=== PATIENT | male | born 1940 | race Caucasian/White ===

== ENCOUNTER → 2017-10-01 09:56 | Outpatient (CLI) | payer MEDICARE, BC ==
[~2017-10-01] VITALS: Ht 172.7 cm; Wt 84.1 kg
--- NOTE | ~2017-10-01 | HEMODYNAMI ---
PATIENT:BLAKE TURNER MEDICAL RECORD: [id number] : 36 LOCATION:[facility] ADMISSION DATE: 10/01/17 Generatedon:10/01/201714:11 Patient name: BLAKE TURNER Patient #: [id number] SSN: : 1940 Date of study: 10/01/2017 Page: Of Hemodynamic Procedure Report Patient Data Patient Demographics Procedure consent was obtained First Name: BLAKE Gender: Male Last Name: YUE : 1940 Middle Initial: N Age: 76 year(s) Patient #: [id number] Race: Additional ID: [id number] Contact details Address: [address] [place] [address] State: [place] City: [place] Zip code: [address] Past Medical History History of disease Date Diagnosis Comments CAD Admission Admission Data Admission Date: 10/01/2017 Admission Time: 9:56 Height (in.): 69 BSA: 2 (m2) Height (cm.): 175.26 BMI: 27.32 (kg/m2) Weight (lbs.): 185 Weight (kg.): 83.91 Procedure Procedure Types Cath Procedure Diagnostic Procedure LHC LHC w/Coronaries w/Grafts Miscellaneous Procedures Moderate Sedation up to 15 minutes Procedure Description Procedure Date Procedure Date: 10/01/2017 Procedure Start Time: 13:45 Procedure End Time: 14:09 Procedure Staff Name Function Cal Medeiros MD Performing Physician Mary Macedo RT Monitor Latosha Quach RT Scrub Daisy Crowell RN Nurse Ryan Stratton RN Civil Engineering Manager Procedure Data Cath Procedure Fluoroscopy Diagnostic fluoroscopy Total fluoroscopy Time: 7.1 time: 7.1 min min Diagnostic fluoroscopy Total fluoroscopy dose: 795 dose: 795 mGy mGy Contrast Material Contrast Material Type Amount (ml) Isovue 300 130 Entry Location Entry Primary Successful Side Size Upsize Upsize Entry Closure Succes sful Closure Location (Fr) 1 (Fr) 2 (Fr) Remarks Device Remarks Femoral Right 5 Fr Exoseal artery Estimated blood loss: 10 ml Diagnostic catheters Device Type Used For End Catheter Placement MULTIPACK JL 4.0 5Fr Procedure catheter MULTIPACK 3DRC 5Fr catheter DIAGNOSTIC AR 2 MOD 5 Fr Procedure catheter ([id number]) DIAGNOSTIC IMT 5Fr Procedure Catheter ([id number]) MULTIPACK Pigtail 5 Fr Ventriculography catheter Procedure Complications No complications Procedure Medications Medication Administration Route Dosage 0.9% NaCl I.V. 100 ml/hr Oxygen NC 2 l/min Lidocaine 2% added to field 20 Heparin Flush Bag added to field 2 bags (1000units/500ml NS) Versed I.V. 1 mg Fentanyl I.V. 50 mcg Fentanyl I.V. 50 mcg Versed I.V. 1 mg Hemodynamics Rest BSA: 2 (m2) O2 Consumption: Estimated: 233 (ml/min) O2 Consumption indexed: Lynda mated:116.5 (ml/min/m) Heart Rate: 75 (bpm) Pressure Samples Time Site Value (mmHg) Purpose Heart Use Rate(bpm) 14:06 LV 150/14,31 Snapshot 79 14:06 LV 170/-1,23 Snapshot 87 14:07 AO 190/94(135) Pullback 77 14:07 LV 191/0,29 Pullback 77 Gradients Valve Time Site 1 Site 2 Mean SEP/DFP Peak To Heart Use (mmHg) (sec/min) Peak Rate (mmHg) (bpm) Aortic 14:07 LV AO 1 3 1 77 191/0,29 190/94(135) Calculations Valve P-P Mean Valve Index Valve Source Name Gradient Area Flow (cm2) Aortic 1 1 1 1 Snapshots Pre Cath Intra NCS Post Cath Vital Signs Time Heart Resp SPO2 etCO2 NIBP (mmHg) Rhythm Pain Sedation Rate (ipm) (%) (mmHg) Status Level (bpm) 13:32:11 70 15 96 0 135/92(122) NSR 0 (11) 10(A) , No pain 13:37:16 69 24 95 28.6 181/94(146) NSR 0 (11) 10(A) , No pain 13:41:40 68 18 98 32.4 176/96(154) NSR 0 (11) 10(A) , No pain 13:45:54 72 16 95 32.4 156/91(135) NSR 0 (11) 10(A) , No pain 13:50:06 75 14 94 38.5 140/78(122) NSR 0 (11) 9(A) , No pain 13:54:16 76 14 94 39.2 138/80(120) NSR 0 (11) 9(A) , No pain 13:58:30 77 16 95 40 132/82(116) NSR 0 (11) 9(A) , No pain 14:02:44 78 16 94 40 148/81(131) NSR 0 (11) 9(A) , No pain 14:07:00 76 16 96 38.5 152/89(124) NSR 0 (11) 10(A) , No pain Medications Time Medication Route Dose Verified Delivered Reason Notes Effe ctiveness by by 13:38:38 0.9% NaCl I.V. 100 Cal Daisy used for ml/hr Waldemar Crowell RN procedure 13:38:47 Oxygen NC 2 Cal Daisy Per l/min Waldemar Crowell RN physician 13:38:55 Lidocaine 2% added 20ml Cal Cal for local to vial Waldemar Medeiros MD anesthetic field 13:39:03 Heparin Flush added 2 Cal Cal used for Bag to bags Waldemar Medeiros MD procedure (1000units/500ml field NS) 13:42:37 Versed I.V. 1 mg Cal Daisy for Waldemar Crowell RN sedation 13:42:48 Fentanyl I.V. 50 Cal Daisy for mcg Waldemar Crowell RN sedation 13:46:07 Fentanyl I.V. 50 Cal Daisy for rosmery Crowell RN sedation 13:46:15 Versed I.V. 1 mg Cal Daisy for Waldemar Crowell RN sedation Procedure Log Time Note 13:21:10 Diagnostic Cath status Elective 13:21:47 Latosha Quach RT(R) sent for patient. Start room use. 13:21:48 Time tracking: Regular hours 13:21:54 Plan of Care:Hemodynamics will remain stable., Cardiac rhythm will remain stable., Comfort level will be maintained., Respiratory function will remain adequate., Patient/ family verbilizes understanding of procedure., Procedure tolerated without complication., Recovers from procedure without complications.. 13:30:51 Patient received from Pre/Post Procedure Room to [facility] 2 Alert and oriented. Tansferred to table in Supine position. 13:30:52 Warm blankets applied, and radha hugger turned on for patient comfort. 13:30:52 Correct patient and procedure confirmed by team. 13:30:53 Signed procedure consent form obtained from patient. 13:30:54 ECG and BP/O2 sat monitors applied to patient. 13:30:55 Baseline sample Acquired. 13:30:55 Vital chart was started 13:30:58 Full Disclosure recording started 13:31:04 H&P Date Dictated: 10/01/2017 Within 30 days and on chart., H&P Addendum completed by physician on day of procedure. (MUST COMPLETE FOR ALL OUTPATIENTS). 13:31:05 Pre-procedure instructions explained to patient. 13:31:05 Pre-op teaching completed and patient verbalized understanding. 13:31:06 Family in waiting room. 13:31:07 Patient NPO since Midnight. 13:31:10 Is the patient allergic to Iodine/contrast media? No. 13:31:11 Was the patient premedicated? No 13:31:12 Is patient on blood thinner?No 13:31:14 Patient diabetic? No. 13:31:17 Previous problem with sedation/anesthesia? No ? 13:31:19 Snore? No 13:31:20 Sleep apnea? No 13:31:21 Deviated septum? No 13:31:22 Opens mouth fully? Yes 13:31:23 Sticks out tongue? Yes 13:31:25 Airway obstruction? No ? 13:31:31 Dentures? Yes in tight 13:31:35 Pre procedure: right dorsailis pedis pulse 1+ Palpable, but thready & weak; easily obliterated 13:31:37 Pre procedure: left dorsailis pedis pulse 1+ Palpable, but thready & weak; easily obliterated 13:31:39 Patient pain scale 0/10 ?. 13:31:56 IV patent on arrival in right forearm with 0.9% NaCl at O. 13:37:22 Lab results completed and on chart. 13:37:27 Right groin area was prepped with chlora-prep and draped in sterile fashion 13:37:28 Alarms reviewed by R. N. 13:37:29 Sharps counted by scrub and verified by R.N. 13:37:29 Physician paged 13:37:30 Physician arrived 13:37:30 --------ALL STOP TIME OUT------ 13:37:31 Final Timeout: patient, procedure, and site verified with staff and physician. All members of the team are in agreement. 13:37:33 Right groin site verified by team. 13:37:37 Physical assessment completed. ASA score P 2 - A patient with mild systemic disease as per Cal Medeiros MD. 13:37:41 Sedation plan: IV Moderate Sedation Medication:Versed, Fentanyl 13:38:27 Use device set Femoral Dx 13:38:38 0.9% NaCl 100 ml/hr I.V. was administered by Daisy Crowell RN; used for procedure; 13:38:47 Oxygen 2 l/min NC was administered by Daisy Crowell RN; Per physician; 13:38:55 Lidocaine 2% 20ml vial added to field was administered by Cal Medeiros MD; for local anesthetic; 13:39:03 Heparin Flush Bag (1000units/500ml NS) 2 bags added to field was administered by Cal Medeiros MD; used for procedure; 13:40:20 ACIST Syringe (57389) opened to sterile field. 13:40:21 Bag Decanter (2002S) opened to sterile field. 13:40:21 Medline Cath Pack ([id number]) opened to sterile field. 13:40:22 SHEATH 5FR Dinosaur (KUB521) opened to sterile field. 13:40:22 DIAGNOSTIC WIRE .035 260cm J wire (498939) opened to sterile field. 13:40:24 ACIST Hand Control (92230) opened to sterile field. 13:40:24 ACIST Manifold (28379) opened to sterile field. 13:40:24 DIAGNOSTIC Multipack 5Fr catheter set (UT1279) opened to sterile field. 13:40:26 Tegaderm 4 x 4 (1626W) opened to sterile field. 13:40:28 PERCUTANEOUS ENTRY 19GA needle opened to sterile field. 13:41:46 Zero performed for pressure channel P1 13:41:58 Patient Height : 69 inches 13:42:04 Patient Weight : 185 lbs 13:42:29 Procedure type changed to Cath procedure, Diagnostic procedure, LHC, LHC w/Coronaries w/Grafts, Miscellaneous Procedures, Moderate Sedation up to 15 minutes 13:42:37 Versed 1 mg I.V. was administered by Daisy Crowell RN; for sedation; 13:42:48 Fentanyl 50 mcg I.V. was administered by Daisy Crowell RN; for sedation; 13:45:23 Procedure started. 13:45:34 Local anesthetic to right femoral artery with Lidocaine 2% by Cal Medeiros MD.INITIAL ACCESS ONLY 13:46:07 Fentanyl 50 mcg I.V. was administered by Daisy Crowell RN; for sedation; 13:46:15 Versed 1 mg I.V. was administered by Daisy Crowell RN; for sedation; 13:47:39 A 5 Fr sheath was inserted into the Right Femoral artery 13:48:29 A MULTIPACK JL 4.0 5Fr catheter was advanced over the wire and used for Procedure. 13:48:33 LCA angiography performed. 13:50:13 Baseline sample Acquired. 13:50:24 Catheter removed. 13:50:31 A MULTIPACK 3DRC 5Fr catheter was advanced over the wire and used for . 13:51:50 RCA angiography performed. 13:51:52 Catheter removed. 13:52:51 A DIAGNOSTIC AR 2 MOD 5 Fr catheter ([id number]) was advanced over the wire and used for Procedure. 13:53:25 SVG to RCA angiography performed. 13:55:34 SVG to Diag angiography performed. 13:55:39 SVG to OM angiography performed. 13:58:34 Catheter removed. 13:59:40 A DIAGNOSTIC IMT 5Fr Catheter ([id number]) was advanced over the wire and used for Procedure. 13:59:52 WARD to LAD angiography performed. 14:05:16 Catheter removed. 14:05:26 A MULTIPACK Pigtail 5 Fr catheter was advanced over the wire and used for Ventriculography. 14:05:39 EXOSEAL 5Fr (EX500) opened to sterile field. 14:05:46 LV angiography performed. 14:05:50 LV gram done using MCCOLLUM 14:06:51 EF : 55 % 14:07:04 Catheter removed. 14:07:15 Sheath removed intact; hemostasis achieved with Exoseal to the Right Femoral artery. 14:07:18 Procedure ended.(Physican Out) 14:07:49 Fluoroscopy time 07.10 minutes. 14:08:11 Fluoroscopy dose: 795 mGy 14:08:11 Flurop Dose total: 795 14:08:19 Contrast amount:Isovue 300 130ml. 14:08:21 Sharps counted by scrub and verified by R.N. 14:08:22 Insertion/operative site no bleeding no hematoma. 14:08:24 Post Procedure Pulses reassessed and unchanged 14:08:28 Post procedure rhythm: unchanged. 14:08:30 Estimated blood loss: 10 ml 14:08:32 Post procedure instruction explained to patient.Patient verbalizes understanding. 14:08:41 Procedure and supply charges have been captured, reviewed, submitted and are correct. 14:09:02 Procedure Complication : No complications 14:09:05 Vital chart was stopped 14:09:06 See physician's report for complete and final results. 14:09:08 Report given to Pre/Post Procedure Room. 14:09:16 Patient transfered to Pre/Post Procedure Room with Stretcher. 14:09:18 Procedure ended. 14:09:18 Full Disclosure recording stopped 14:09:22 End room use (Document Last) Device Usage Item Name Manufacture Quantity Catalog Number Hospital Part Current Mini mal Lot# / Charge Number Stock Stock Serial# Code ACIST Acist 1 34301 330725 763297 694850 20 Syringe Medical (84073) Systems Inc Bag Decanter Microtek 1 2001S 606799 89970 168700 5 (2001S) Medical Inc. Medline Cath Cardinal 1 [id number] 186570 15266 493359 5 Pack Health ([id number]) SHEATH 5FR Terumo 1 [id number] 300261 858314 535677 40 Dinosaur (VJV853) DIAGNOSTIC St Bunny 1 112725 379044 024038 461775 30 WIRE .035 260cm J wire (823751) ACIST Hand Acist 1 53896 773448 406340 081876 5 Control Medical (71610) Systems Inc ACIST Acist 1 42721 100481 779880 490123 5 Manifold Medical (69576) Systems Inc DIAGNOSTIC Cardinal 1 SV6276 273218 80424 955298 30 Multipack Health 5Fr catheter set (XT1085) Tegaderm 4 x 3M 1 1626W 212992 885774 602157 5 4 (1626W) PERCUTANEOUS Cook Medical 1 F47071 546169 314160 5 ENTRY 19GA needle MULTIPACK JL Cardinal 1 065532 5 4.0 5Fr Health catheter MULTIPACK Cardinal 1 985219 5 3DRC 5Fr Health catheter DIAGNOSTIC Cardinal 1 [id number] 909803 332429 982986 20 AR 2 MOD 5 Health Fr catheter (784946P) DIAGNOSTIC [place] 1 [id number] 859135 027891 97955 5 IMT 5Fr Scientific Catheter ([id number]) MULTIPACK Cardinal 1 004202 5 Pigtail 5 Fr Health catheter EXOSEAL 5Fr Cardinal 1 EX500 133413 180084 631056 10 (EX500) Health Signature Audit [place] Stage Time Signature Unsigned Intra-Procedure 10/01/2017 Mary Macedo 2:11:30 PM RT(R) Signatures Monitor : Mary Macedo Signature : RT Date : Time : [address] [address]
[~2017-10-01 09:56] MED LIST: ALPHAGAN P15 ML EACH EYE; BAYER CHEWABLE81 MG PO; HEMOCYTE PLUS C1 CAP PO; K-TAB10 MEQ; K-TAB10 MEQ PO; LANOXIN125 MCG PO; LISINOPRIL10 MG PO; METOPROLOL TART25 MG PO; PLAVIX75 MG; PLAVIX75 MG PO; XALATAN 0.0052.5 ML RIGHT EYE; ZESTRIL20 MG PO; ZOCOR40 MG PO; ZYLOPRIM300 MG PO
[2017-10-01 11:32] VITALS: BP 162/70; Ht 172.7 cm; Wt 84.1 kg
[2017-10-01 12:24] LABS: BASOPHILS 0.1 % (0-2); EOSINOPHILS 0.1 % (0-7); HEMATOCRIT 40.1 % (42.0-54.0); HEMOGLOBIN 13.7 g/dL (13.5-17.5); IMMATURE GRANULOCYTES 0.6 % (0-5); LYMPHOCYTES 16.3 % (15-50); MCH 32.5 pg (26.0-34.0); MCHC 34.2 g/dL (31.0-37.0); MEAN PLATELET VOLUME 11.2 fL (7.4-10.4); MONOCYTES 7.3 % (2-11); NEUTROPHILS 75.6 % (40-80); RBC 4.22 10x6/uL (4.20-6.10); WBC 7.1 10x3/uL (4.8-10.8)
[2017-10-01 12:29] LABS: PLATELET COUNT 138 10x3/uL (130-400)
[2017-10-01 12:41] LABS: CALC OSMOLALITY 274 mosm/kg (275-300); CALCIUM 8.8 mg/dL (8.5-10.1); CARBON DIOXIDE 27.8 mmol/L (21.0-32.0); CHLORIDE - SERUM 101 mmol/L (98-107); CREATININE - SERUM 0.8 mg/dL (0.6-1.3); GLUCOSE 110 mg/dL (74-106); SODIUM 136 mmol/L (136-145); UREA NITROGEN 18 mg/dL (7-18); eGFR NON AFRICAN AMERICAN > 90 mL/min (90-120)
[2017-10-01 12:46] LABS: POTASSIUM - SERUM 4.3 mmol/L (3.5-5.1)
== END | disposition home or self-care (01) ==
LOC: D.CATH 09:56
PROVIDERS: Internal Medicine Cardiovascular Disease
DX: I25.119 Atherosclerotic heart disease of native coronary artery with unspecified angina pectoris (principal); Z01.812 Encounter for preprocedural laboratory examination

== ENCOUNTER → 2019-02-24 10:25 | Outpatient (CLI) | payer MEDICARE, BC ==
[2017-10-01 11:32] VITALS: BMI 28.1
--- NOTE | ~2019-02-24 | ST ---
PATIENT:BLAKE TURNER MEDICAL RECORD: [id number] SEX: M LOCATION:[facility] ORDER #: ADMISSION DATE: 02/24/19 AGE OF PATIENT: 78 REFERRING PHYSICIAN: INTERPRETING PHYSICIAN: KIAN MAGDALENO MD DATE OF SERVICE: 02/24/2019 PROCEDURE: Nuclear stress test. INDICATION: Angina, coronary artery disease, status post coronary artery bypass grafting surgery. He was exercised on standard Lexiscan protocol with 31 mCi of sestamibi injected at peak stress, 10 mCi used previously for rest images. FINDINGS: Gated SPECT reveals preserved ejection fraction at 63% with good wall motioning and thickening and brightening throughout all segment. SPECT imaging Cardiolite was used as myocardial perfusion agent. There are definite reversible changes inferiorly and apically. This includes the basal, mid apical, and inferior segment as well as the apex itself. The degree of reversibility is moderate. The amount of myocardial involved is moderate. OVERALL IMPRESSION: 1. This is an abnormal nuclear stress test, reversibility inferoapically. 2. Gated SPECT reveals preserved ejection fraction at 63% in this patient with ongoing symptomatology. The current scan does suggest the presence of hemodynamically significant coronary artery disease. We will proceed with coronary angiography as followup study. TRANSINT:[id number] Voice Confirmation ID: [id number] DOCUMENT ID: [id number] KIAN MAGDALENO MD CC: LEFTY MCKEON JR, MD [id number] DICTATION DATE: 02/24/19 1618 MANUAL ARTS TEACHER: 02/25/19 0448 DEP CLI 02/24/19 [place] [address]
== END | disposition home or self-care (01) ==
LOC: D.HCCARDIO 10:25
PROVIDERS: ATTEND Internal Medicine Cardiovascular Disease
DX: I25.10 Atherosclerotic heart disease of native coronary artery without angina pectoris (principal)

== ENCOUNTER 2019-02-28 14:49 | Inpatient (IN) | payer MEDICARE, BC ==
--- NOTE | ~2019-02-28 | HEMODYNAMI ---
PATIENT:BLAKE TURNER MEDICAL RECORD: [id number] : 36 [id number] ADMISSION DATE: 02/28/19 Generatedon:03/01/201916:03 Patient name: BLAKE TURNER Patient #: [id number] SSN: : 1940 Date of study: 03/01/2019 Page: Of Hemodynamic Procedure Report Patient Data Patient Demographics Procedure consent was obtained First Name: BLAKE Gender: Male Last Name: YUE : 1940 Middle Initial: N Age: 78 year(s) Patient #: [id number] Race: Additional ID: [id number] Contact details Address: [address] [place] [address] State: [place] City: [place] Zip code: [address] Past Medical History History of disease Date Diagnosis Comments CAD Allergies: No known allergies Admission Admission Data Admission Date: 02/28/2019 Admission Time: 16:23 Admit Source: Emergency department Room #: D.2130 Lab Results Lab Result Date: 02/28/2019 Lab Result Time: 15:15 Biochemistry Name Units Result Min Max BUN mg/dl 21 --(----)-* 7 18 Creatinine mg/dl 1.2 --(---*)-- 0.6 1.3 CBC Name Units Result Min Max Hematocrit % 40.5 -*(----)-- 42 54 Hemoglobin g/dl 14 --(*---)-- 13.5 17.5 Procedure Procedure Types Cath Procedure Diagnostic Procedure LHC LHC w/Coronaries w/Grafts Aortic Root Angiography Sedation Charges Moderate Sedation up to 15 minutes Procedure Description Procedure Date Procedure Date: 03/01/2019 Procedure Start Time: 15:42 Procedure End Time: 16:02 Procedure Staff Name Function Cal Medeiros MD Performing Physician Victor Hugo Boyer RT Monitor Eboni Malone RT Scrub Ryan Stratton RN Nurse Latosha Quach RT Scrub Shaunna Aldrich RT Monitor Procedure Data Cath Procedure Fluoroscopy Diagnostic fluoroscopy Total fluoroscopy Time: 4.3 time: 4.3 min min Diagnostic fluoroscopy Total fluoroscopy dose: 567 dose: 567 mGy mGy Contrast Material Contrast Material Type Amount (ml) Isovue 300 86 Entry Location Entry Primary Successful Side Size Upsize Upsize Entry Closure Succes sful Closure Location (Fr) 1 (Fr) 2 (Fr) Remarks Device Remarks Femoral Right 5 Fr Exoseal artery Estimated blood loss: 5 ml Diagnostic catheters Device Type Used For End Catheter Placement MULTIPACK JL 4.0 5Fr Procedure catheter DIAGNOSTIC AR MOD 5Fr Procedure Catheter ([id number]) DIAGNOSTIC IM 5Fr Internal mammary catheter ([id number]) arteriography MULTIPACK Pigtail 5 Fr LV Angiography catheter MULTIPACK Pigtail 5 Fr Aortic Root catheter Angiography Procedure Complications No complications Procedure Medications Medication Administration Route Dosage Oxygen etCO2 Nasal cannula 2 l/min Heparin Flush Bag added to field 2 bags (1000units/500ml NS) 0.9% NaCl I.V. 100 ml/hr Lidocaine 2% added to field 20 Fentanyl I.V. 50 mcg Versed I.V. 1 mg Fentanyl I.V. 50 mcg Versed I.V. 1 mg Fentanyl I.V. 50 mcg Fentanyl I.V. 50 mcg Hemodynamics Rest HGB: 14 (g/dl) Heart Rate: 75 (bpm) Pressure Samples Time Site Value (mmHg) Purpose Heart Use Rate(bpm) 15:57 LV 121/-1,10 EDP 78 15:58 AO 135/63(95) Pullback 77 15:58 LV 136/0,12 Pullback 77 Gradients Valve Time Site 1 Site 2 Mean SEP/DFP Peak To Heart Use (mmHg) (sec/min) Peak Rate (mmHg) (bpm) Aortic 15:58 LV AO 7 19 1 77 136/0,12 135/63(95) Calculations Valve P-P Mean Valve Index Valve Source Name Gradient Area Flow (cm2) Aortic 1 7 1 7 Snapshots Pre Cath Intra NCS Post Cath Vital Signs Time Heart Resp SPO2 etCO2 NIBP (mmHg) Rhythm Pain Sedation Rate (ipm) (%) (mmHg) Status Level (bpm) 15:26:08 80 17 97 28 139/78(124) NSR 0 (11) 10(A) , No pain 15:30:26 81 16 97 25.4 131/75(116) NSR 0 (11) 10(A) , No pain 15:35:19 76 17 97 28.4 123/75(109) NSR 0 (11) 10(A) , No pain 15:39:33 75 17 96 26.9 123/73(109) NSR 0 (11) 10(A) , No pain 15:43:45 74 17 97 27.7 124/79(109) NSR 0 (11) 9(A) , No pain 15:47:57 81 13 96 27.7 122/77(105) NSR 0 (11) 10(A) , No pain 15:52:04 78 12 97 28.4 119/72(100) NSR 0 (11) 9(A) , No pain 15:56:18 76 13 97 29.2 123/69(96) NSR 0 (11) 9(A) , No pain 16:00:32 77 15 97 26.9 122/75(106) NSR 0 (11) 10(A) , No pain Medications Time Medication Route Dose Verified Delivered Reason Notes Effe ctiveness by by 15:26:37 Oxygen etCO2 2 Cal Bertrand Per Nasal l/min Waldemar Mc RN physician cannula 15:26:44 Heparin Flush added 2 Cal Bertrand used for Bag to bags Waldemar Mc RN procedure (1000units/500ml field NS) 15:26:53 0.9% NaCl I.V. 100 Cal Bertrand Per ml/hr Waldemar Mc RN physician 15:27:01 Lidocaine 2% added 20ml Cal Bertrand used for to vial Waldemar Mc social media marketing specialist field 15:39:51 Fentanyl I.V. 50 Cal Bertrand for mcg Waldemar Mc RN sedation 15:40:03 Versed I.V. 1 mg Cal Bertrand for Waldemar Mc RN sedation 15:42:23 Fentanyl I.V. 50 Cal Bertrand for mcg Waldemar Mc RN sedation 15:42:32 Versed I.V. 1 mg Cal Bertrand for Waldemar Mc RN sedation 15:44:35 Fentanyl I.V. 50 Cal Bertrand for mcg Waldemar cM RN sedation 15:49:28 Fentanyl I.V. 50 Cal Bertrand for mcg Waldemar Mc RN sedation Procedure Log Time Note 14:52:51 Informed consent obtained and on chart 14:52:53 Admit Source: Emergency department 14:53:01 Diagnostic Cath status Urgent 14:53:20 Time tracking: Regular hours (M-F 7:00 - 5:00) 14:53:26 Plan of Care:Hemodynamics will remain stable., Cardiac rhythm will remain stable., Comfort level will be maintained., Respiratory function will remain adequate., Patient/ family verbilizes understanding of procedure., Procedure tolerated without complication., Recovers from procedure without complications.. 14:53:47 H&P Date Dictated: 02/28/2019 Within 30 days and on chart.. 14:54:35 Lab Result : BUN 21 mg/dl 14:54:35 Lab Result : Hemoglobin 14 g/dl 14:54:35 Lab Result : Creatinine 1.2 mg/dl 14:54:35 Lab Result : Hematocrit 40.5 % 14:54:37 Lab results completed and on chart. 15:06:33 Eboni Malone RT(R) sent for patient. Start room use. 15:15:57 Patient received from Twingly II to CCL 1 Alert and oriented. Tansferred to table in Supine position. 15:15:59 Warm blankets applied, and radha hugger turned on for patient comfort. 15:16:00 Correct patient and procedure confirmed by team. 15:16:03 ECG and BP/O2 sat monitors applied to patient. 15:16:05 Pre-procedure instructions explained to patient. 15:16:06 Pre-op teaching completed and patient verbalized understanding. 15:16:07 Family in waiting room. 15:16:10 Patient NPO since Breakfast. 15:16:21 Patient allergic to No known allergies 15:24:59 Vital chart was started 15:26:37 Oxygen 2 l/min etCO2 Nasal cannula was administered by Bertrand Mc RN; Per physician; 15:26:44 Heparin Flush Bag (1000units/500ml NS) 2 bags added to field was administered by Bertrand Mc RN; used for procedure; 15:26:53 0.9% NaCl 100 ml/hr I.V. was administered by Bertrand Mc RN; Per physician; 15:27:01 Lidocaine 2% 20ml vial added to field was administered by Bertrand Mc RN; used for procedure; 15:31:03 Is the patient allergic to Iodine/contrast media? No. 15:32:01 Is patient on blood thinner?No 15:32:02 Patient diabetic? No. 15:32:04 Previous problem with sedation/anesthesia? No ? 15:32:13 Snore? Yes 15:32:15 Sleep apnea? No 15:32:16 Deviated septum? No 15:32:17 Opens mouth fully? Yes 15:32:17 Sticks out tongue? Yes 15:32:34 Airway obstruction? No ? 15:32:44 Dentures? Yes partial in tight 15:32:49 Pre procedure: right dorsailis pedis pulse 2+ Normal; easily identifiable; not easily obliterated 15:32:51 Patient pain scale 0/10 ?. 15:33:03 IV patent on arrival in left forearm with 0.9% NaCl at [facility]. 15:33:06 Right groin area was prepped with chlora-prep and draped in sterile fashion 15:33:07 Alarms reviewed by R. N. 15:33:07 Sharps counted by scrub and verified by R.N. 15:33:26 Use device set Femoral Dx 15:33:27 ACIST Syringe (42261) opened to sterile field. 15:33:27 Bag Decanter (2002S) opened to sterile field. 15:33:28 Medline Cath Pack ([id number]) opened to sterile field. 15:33:32 ACIST Hand Control (51195) opened to sterile field. 15:33:32 ACIST Manifold (28186) opened to sterile field. 15:33:33 Tegaderm 4 x 4 (1626W) opened to sterile field. 15:33:34 SHEATH 5FR Harlan (PEQ062) opened to sterile field. 15:33:35 DIAGNOSTIC WIRE .035 260cm J wire (476719) opened to sterile field. 15:33:36 DIAGNOSTIC Multipack 5Fr catheter set (BS1839) opened to sterile field. 15:37:40 Baseline sample Acquired. 15:37:43 Rhythm: sinus rhythm 15:37:47 Full Disclosure recording started 15:38:45 Physician arrived 15:38:46 --------ALL STOP TIME OUT------ 15:38:46 Final Timeout: patient, procedure, and site verified with staff and physician. All members of the team are in agreement. 15:38:48 Right groin site verified by team. 15:38:52 Maximum allowable Isovue 300 dose 300ml. Physician notified. (300ml for normal creatinines. For patients with creatinine of 1.7 or higher multiply weight(kg) x 5 divided by creatinine.) 15:38:56 Fire Safety Assessment: A--An alcohol-based skin anteseptic being used preoperatively., C--Open oxygen or nitrous oxide is being used., D--An ESU, laser, or fiber-optic light is being used. 15:38:58 Physical assessment completed. ASA score P 2 - A patient with mild systemic disease as per Cal Medeiros MD. 15:39:01 Sedation plan: IV Moderate Sedation Medication:Versed, Fentanyl 15:39:51 Fentanyl 50 mcg I.V. was administered by Bertrand Mc RN; for sedation; 15:40:03 Versed 1 mg I.V. was administered by Bertrand Mc RN; for sedation; 15:42:12 Procedure started. 15:42:16 Local anesthetic to right femoral artery with Lidocaine 2% by Cal Medeiros MD.INITIAL ACCESS ONLY 15:42:22 A 5 Fr sheath was inserted into the Right Femoral artery 15:42:23 Fentanyl 50 mcg I.V. was administered by Bertrand Mc RN; for sedation; 15:42:32 Versed 1 mg I.V. was administered by Bertrand Mc RN; for sedation; 15:44:25 A MULTIPACK JL 4.0 5Fr catheter was advanced over the wire and used for Procedure. 15:44:35 Fentanyl 50 mcg I.V. was administered by Bertrand Mc RN; for sedation; 15:44:50 LCA angiography performed. 15:45:48 Zero performed for pressure channel P1 15:45:52 Zero performed for pressure channel P1 15:45:55 Zero performed for pressure channel P1 15:46:04 Catheter exchanged over wire. 15:46:09 A DIAGNOSTIC AR MOD 5Fr Catheter ([id number]) was advanced over the wire and used for Procedure. 15:46:51 RCA angiography performed. 15:48:39 SVG to Circ angiography performed. 15:49:28 Fentanyl 50 mcg I.V. was administered by Bertrand Mc RN; for sedation; 15:49:46 Catheter exchanged over wire. 15:50:06 A DIAGNOSTIC IM 5Fr catheter ([id number]) was advanced over the wire and used for Internal mammary arteriography.TO LAD 15:51:56 GLIDE WIRE ANGLE 260cm (RZ4611) opened to sterile field. 15:53:37 glidewire wire advanced. 15:56:31 Wire removed. 15:56:44 Catheter removed. 15:57:14 A MULTIPACK Pigtail 5 Fr catheter was advanced over the wire and used for LV Angiography. 15:58:04 LV gram done using MCCOLLUM 15:58:04 LV hemodynamics recorded. 15:58:07 Injector settings: Ml/sec: 10, Volume: 20, 15:58:28 EF : 50 % 15:58:51 A MULTIPACK Pigtail 5 Fr catheter was advanced over the wire and used for Aortic Root Angiography. 15:58:55 Injector settings: Ml/sec: 15, Volume: 30, 15:59:10 Catheter removed. 15:59:20 EXOSEAL 5Fr (EX500) opened to sterile field. 15:59:37 Sheath removed intact; hemostasis achieved with Exoseal to the Right Femoral artery. 15:59:53 Procedure ended.(Physican Out) 16:00:06 Fluoroscopy time 04.30 minutes. 16:00:09 Flurop Dose total: 567 16:00:09 Fluoroscopy dose: 567 mGy 16:00:34 Contrast amount:Isovue 300 86ml. 16:00:35 Sharps counted by scrub and verified by R.N. 16:00:38 Insertion/operative site no bleeding no hematoma. 16:00:40 Post-op/insertion site Right Femoral artery dressed using a 4 x 4 and Tegaderm. 16:00:43 Post right femoral artery:stable, clean and dry 16:00:44 Post Procedure Pulses reassessed and unchanged 16:00:46 Post-procedure physical assessment completed. ASA score P 2 - A patient with mild systemic disease as per Cal Medeiros MD. 16:00:48 Post procedure rhythm: unchanged. 16:00:51 Estimated blood loss: 5 ml 16:00:58 Post procedure instruction explained to patient.Patient verbalizes understanding. 16:00:59 Patient needs reinforcement of post procedure teaching. 16:01:05 Procedure Complication : No complications 16:01:06 See physician's report for complete and final results. 16:01:33 Procedure type changed to Cath procedure, Diagnostic procedure, LHC, LHC w/Coronaries w/Grafts, Aortic Root Angiography, Sedation Charges, Moderate Sedation up to 15 minutes 16:01:36 Procedure and supply charges have been captured, reviewed, submitted and are correct. 16:02:26 Vital chart was stopped 16:02:31 Report given to PCU. 16:02:34 Patient transfered to PCU with Bed. 16:02:41 Procedure ended. 16:02:41 Full Disclosure recording stopped 16:02:46 End room use (Document Last) Device Usage Item Name Manufacture Quantity Catalog Hospital Part Current Minimal L ot# / Number Charge Number Stock Stock Serial# Code ACIST Acist 1 09921 162305 973751 610684 20 Syringe Medical (85616) Systems Inc Bag Microtek 1 2001S 431379 51712 314384 5 Decanter Medical Inc. () Medline Medline 1 [id number] 071875 82925 017955 5 Cath Pack ([id number]) ACIST Hand Acist 1 66073 898209 598404 847932 5 Control Medical (91735) Systems Inc ACIST Acist 1 84018 170869 310333 416721 5 Manifold Medical (86704) Systems Inc Tegaderm 4 3M 1 1626W 918943 997235 325068 5 x 4 (1626W) SHEATH 5FR Terumo 1 RDM243 579658 850756 166109 5 Harlan (TRT419) DIAGNOSTIC St Bunny 1 483961 683792 491847 488362 30 WIRE .035 260cm J wire (537042) DIAGNOSTIC Cardinal 1 HO0632 205201 53996 000587 30 Multipack Health 5Fr catheter set (VA1993) MULTIPACK Cardinal 1 480884 5 JL 4.0 5Fr Health catheter DIAGNOSTIC Cardinal 1 [id number] 395065 155546 568942 15 AR MOD 5Fr Health Catheter (498013C) DIAGNOSTIC Cardinal 1 [id number] 167145 088271 398515 5 IM 5Fr Health catheter (767248H) GLIDE WIRE Terumo 1 AD1858 577549 266396 580517 5 ANGLE 260cm (GC4431) MULTIPACK Cardinal 1 406619 5 Pigtail 5 Health Fr catheter EXOSEAL 5Fr Cardinal 1 EX500 878137 001750 696686 10 (EX500) Health Signature Audit [place] Stage Time Signature Unsigned Intra-Procedure 03/01/2019 Shaunna 4:02:56 PM Counts RT(R) Signatures Monitor : Victor Hugo Boyer RT Signature : Date : Time : Monitor : Shaunna Signature : Counts RT Date : Time : [address] [place] [address]
[2019-02-28 15:24] LABS: BASOPHILS 0.3 % (0-2); HEMATOCRIT 40.5 % (42.0-54.0); IMMATURE GRANULOCYTES 0.2 % (0-5); MCHC 34.6 g/dL (31.0-37.0); MCV 89.6 fL (80.0-100.0); MEAN PLATELET VOLUME 10.4 fL (7.4-10.4); MONOCYTES 8.7 % (2-11); NEUTROPHILS 65.8 % (40-80); PLATELET COUNT 142 10x3/uL (130-400); RBC 4.52 10x6/uL (4.20-6.10); RDW 15.2 % (11.5-14.5); WBC 6.1 10x3/uL (4.8-10.8)
--- NOTE | 2019-02-28 15:25 | NUR ---
PATIENT DENIES CP AT PRESENT TIME
[2019-02-28 15:33] LABS: APTT 28.8 SECONDS (22.8-39.4); INR 1.18 (0.85-1.17); PROTIME 14.5 SECONDS (11.6-15.0)
[2019-02-28 15:55] LABS: ALBUMIN 3.8 g/dL (3.4-5.0); ALKALINE PHOSPHATASE 69 U/L (46-116); ALT (SGPT) 37 U/L (10-68); BILIRUBIN - TOTAL 1.07 mg/dL (0.2-1.3); CALC OSMOLALITY 280 mosm/kg (275-300); CALCIUM 9.2 mg/dL (8.5-10.1); CARBON DIOXIDE 26.7 mmol/L (21.0-32.0); CHLORIDE - SERUM 103 mmol/L (98-107); CREATININE - SERUM 1.1 mg/dL (0.6-1.3); GLUCOSE 111 mg/dL (74-106); POTASSIUM - SERUM 3.6 mmol/L (3.5-5.1); PROTEIN - SERUM 7.3 g/dL (6.4-8.2); SODIUM 140 mmol/L (136-145); UREA NITROGEN 16 mg/dL (7-18); eGFR NON AFRICAN AMERICAN 68 mL/min (90-120)
[2019-02-28 16:05] VITALS: BP 146/76
[2019-02-28 16:07] LABS: CKMB 0.8 U/L (0.0-3.6); CREATINE KINASE 58 UL (21-232); PRO BNP 428 pg/mL (0-450)
[2019-02-28 16:08] LABS: TROPONIN-I < 0.017 ng/mL (0.000-0.060)
--- NOTE | 2019-02-28 17:09 | NUR ---
PT RECIEVED FROM ER. VERY PLESANT, UP AD SAMUEL. AT BEDSIDE.
[2019-02-28 17:17] LABS: CKMB 0.5 U/L (0.0-3.6); CREATINE KINASE 82 UL (21-232)
[2019-02-28 17:25] LABS: TROPONIN-I < 0.017 ng/mL (0.000-0.060)
--- NOTE | 2019-02-28 17:26 | NUR ---
PT STATED THAT HE DOES NOT TAKE HIS MEDICATIONS AND HASN'T IN WEEKS.
[2019-02-28 18:07] VITALS: BP 149/88; BMI 22.5
--- NOTE | 2019-02-28 18:17 | NUR ---
ASSESSMENT COMPLETE PT AAOX4 RESP UNLABORED O2 ON 3LPM N/C SKIN W/D SALINELOCK INTACT TO RFA WITHOUT REDNESS OR EDEMA OCCLUSIVE DRSG INTACT TELEMETRY SR W/BBB AND 1ST DEGREE HEART BLOCK RATE 73
--- NOTE | 2019-02-28 19:42 | NUR ---
RECIEVED BEDSIDE REPORT. ROUNDS COMPLETED. VSS, AAOX1. NO S/S OF DISTRESS. PT OCCASSIONALLY TRIES TO PULL OUT HIS PIV. WRAPPED THE IV SITE WITH COBAN. PT VOICED THANKS.PT CURRENTLY RESTING IN BED. WILL CTM. CL IN REACH, BED IN LOW, SR UP X2.
[2019-02-28 20:38] VITALS: BP 159/81
[2019-02-28 22:36] LABS: CKMB 0.5 U/L (0.0-3.6); CREATINE KINASE 52 UL (21-232); TROPONIN-I < 0.017 ng/mL (0.000-0.060)
[2019-02-28 23:44] VITALS: BP 114/64
[2019-03-01 04:57] VITALS: BP 118/72
[2019-03-01 06:31] LABS: CKMB 0.9 U/L (0.0-3.6); CREATINE KINASE 45 UL (21-232); TROPONIN-I < 0.017 ng/mL (0.000-0.060)
--- NOTE | 2019-03-01 07:05 | NUR ---
RECEIVED LYING SUPINE WITH RESP EVEN WITHOUT LABOR ALERT DENIES ANY C/O AT THIS TIME FAMILY AT BEDSIDE CL IN REACH BED IN LOWEST POSITION
[2019-03-01 07:49] LABS: ANION GAP 14.4 mmol/L (8-16); CALCIUM 9.3 mg/dL (8.5-10.1); CARBON DIOXIDE 26.2 mmol/L (21.0-32.0); CREATININE - SERUM 1.2 mg/dL (0.6-1.3); POTASSIUM - SERUM 3.6 mmol/L (3.5-5.1)
[2019-03-01 07:54] LABS: BASOPHILS 0 % (0-2); EOSINOPHILS 0.2 % (0-7); HEMATOCRIT 39.2 % (42.0-54.0); HEMOGLOBIN 13.4 g/dL (13.5-17.5); IMMATURE GRANULOCYTES 0.2 % (0-5); LYMPHOCYTES 12.1 % (15-50); MCH 30.9 pg (26.0-34.0); MCHC 34.2 g/dL (31.0-37.0); MCV 90.5 fL (80.0-100.0); MEAN PLATELET VOLUME 11.3 fL (7.4-10.4); MONOCYTES 0.6 % (2-11); NEUTROPHILS 86.9 % (40-80); PLATELET COUNT 144 10x3/uL (130-400); RBC 4.33 10x6/uL (4.20-6.10); RDW 15.1 % (11.5-14.5)
[2019-03-01 08:23] VITALS: BP 137/69
--- NOTE | 2019-03-01 08:55 | NUR ---
Wound care consult due to weakness. Recommendations: -Turn/reposition q 2 hours while in bed (hourly if up in chair) -Bridge/float heels while in bed to decrease risk of skin on heels breaking down -Protect bony prominences -use zinc oxide paste to henrry area if incontinent
--- NOTE | 2019-03-01 09:00 | NUR ---
ASSESSMENT COMPLETED. PATIENT IS STABLE AND VSS. PATIENT NPO FOR HEART CATH. CONSENTS SIGNED. PATIENT DENIES ANY NEEDS OR PAIN. WILL CONTINUE TO MONITOR. SR UP X 2 BED IN LOW POSITION AND CALL LIGHT IN REACH.
[2019-03-01 11:57] VITALS: BP 106/62
--- NOTE | 2019-03-01 13:47 | NUR ---
PATIENT IS STABLE AND VSS. PATIENT DENIES ANY NEEDS OR PAIN. SCD'S APPLIED PER ORDER. FAMILY AT BEDSIDE. PATIENT REMAINS NPO AWAITING HEART CATH. SR UP X 2 BED IN LOW POSITION AND CALL LIGHT IN REACH.
[2019-03-01 14:12] VITALS: BMI 27.1
--- NOTE | 2019-03-01 17:01 | NUR ---
PATIENT RETURNED TO ROOM VIA HOSPITAL BED AND BOTTLING LINE ATTENDANT TEAM MEMBERS. PATIENT IS STABLE AND VSS. RT GROIN DRESSING C/D/I. NO BLEEDING , BRUISING OR HEMATOMA. PATIENT IS SLEEPY BUT AROUSES TO VOICE EASILY. PATIENT DENIES ANY PAIN OR NEEDS. FAMILY AT BEDSIDE. MONITORING VS Q 15 MINUTES.SR UP X 2 BED IN LOW POSTION AND CALL LIGHT IN REACH.
--- NOTE | 2019-03-01 18:09 | NUR ---
PATIENT IS STABLE AND VSS. RT GROIN DRSG C/D/I. NO BLEEDING , BRUISING OR HEMATOMA NOTED. PATIENT CONTINUES TO LAY FLAT WITH LEGS STRAIGHT. IV NS INFUSING AT 200 ML/HR. PATIENT DENIES ANY NEEDS OR PAIN. FAMILY AT BEDSIDE. WILL CONTINUE TO MONITOR. SR UP X 2 BED IN LOW POSITION AND CALL LIGHT IN REACH.
--- NOTE | 2019-03-01 19:00 | NUR ---
PT LAYING IN BED. EYES CLOSED, CHEST RISING AND FALLING. FAMILY AT BEDSIDE. NO DISTRESS NOTED.
[2019-03-01 20:46] VITALS: BP 132/76
--- NOTE | 2019-03-01 21:50 | NUR ---
RYLIE NOTIFIED THIS NURSE OF A CRITICAL LAB-D-DIMER >20. NIGHAT DOYLE APN NOTIFIED. NEW ORDERS FOR CTA PE PROTOCOL AND VENOUS DOPPLER ADAIR. ORDERS ENTERED AND RADIOLOGY NOTIFIED.
--- NOTE | 2019-03-01 23:00 | NUR ---
NOTIFIED BY RADIOLOGY YAZ OF CRITICAL FINDINGS. LARGE PE IN BOTH LUNGS AND RIGHT HEART STRAIN. NIGHAT DOYLE APN NOTIFIED. NEW ORDER FOR LOVENOX AND PULMONARY CONSULT. DR. FERGUSON NOTIFIED OF PATIENT'S CONDITION. DR. FERGUSON TO SEE PATIENT IN AM.
[2019-03-02] VITALS (7 sets, daily range): BP systolic 117–158; BP diastolic 52–83; BMI 27.1
--- NOTE | 2019-03-02 02:29 | NUR ---
I have reviewed this patient and I concur with the Shift Assessment completed by the Licensed Practical Nurse today this shift.
--- NOTE | 2019-03-02 03:15 | NUR ---
PATIENT LAYING IN BED. EYES CLOSED, CHEST RISING AND FALLING. NO DISTRESS NOTED.
--- NOTE | 2019-03-02 03:49 | NUR ---
PATIENT'S IV INFILTATED DURING CTA. NEW IV IN RIGHT FOREARM 20G X1 ATTEMPT.
--- NOTE | 2019-03-02 05:10 | NUR ---
PATIENT LAYING IN BED. NO COMPLAINTS AT THIS TIME. NO DISTRESS NOTED.
[2019-03-02 06:25] LABS: BASOPHILS 0.1 % (0-2); EOSINOPHILS 0.3 % (0-7); HEMATOCRIT 37.1 % (42.0-54.0); HEMOGLOBIN 12.6 g/dL (13.5-17.5); IMMATURE GRANULOCYTES 0.3 % (0-5); MCV 91.2 fL (80.0-100.0); MEAN PLATELET VOLUME 11.5 fL (7.4-10.4); MONOCYTES 6.9 % (2-11); NEUTROPHILS 73.4 % (40-80); PLATELET COUNT 143 10x3/uL (130-400); RBC 4.07 10x6/uL (4.20-6.10); RDW 15.3 % (11.5-14.5)
[2019-03-02 06:47] LABS: CALC OSMOLALITY 279 mosm/kg (275-300); CALCIUM 8.7 mg/dL (8.5-10.1); CARBON DIOXIDE 25.8 mmol/L (21.0-32.0); CHLORIDE - SERUM 104 mmol/L (98-107); POTASSIUM - SERUM 3.7 mmol/L (3.5-5.1); SODIUM 139 mmol/L (136-145); UREA NITROGEN 17 mg/dL (7-18); eGFR NON AFRICAN AMERICAN 76 mL/min (90-120)
[2019-03-02 06:48] LABS: GLUCOSE 95 mg/dL (74-106)
[2019-03-02 06:58] LABS: WBC 7.8 10x3/uL (4.8-10.8)
--- NOTE | 2019-03-02 07:15 | NUR ---
RECEIVED LYING SUPINE IN BED. ALERT AROUSES EASILY TO VERBAL STIMULI RESP EVEN WITHOUT LABOR. SALINE LOCK RIGHT FOREARM INTACT SITE CLEAR. BED IN LOW POSITION AND CL IN REACH AT BEDSIDE.
--- NOTE | 2019-03-02 09:15 | NUR ---
SITTING UP ON SIDE OF BED. IN ROOM AT BEDSIDE. O2 ON RESP EVEN WITHOUT LABOR DENIES ANY CHEST PAIN OR SHORTNESS OF BREATH. TAKING PO FLUIDS WELL.
--- NOTE | 2019-03-02 10:55 | MORECARE ---
CASE MANAGEMENT DISCHARGE SUMMARY PATIENT: BLAKE TURNER UNIT: [id number] ADM DATE: 02/28/19 AGE: 78 : 38 SEX: M ROOM/BED: D.2130 AUTHOR: VAISHALI,DOC PHYSICIAN: REFERRING PHYSICIAN: AGATA ANDERSON MD DATE OF SERVICE: 03/02/19 Discharge Plan Patient Name: BLAKE TURNER Facility: [facility]:[place] : 1940 Planned Disposition: Home Anticipated Discharge Date: Discharge Date: Expected LOS: Initial Reviewer: [email or web address] Initial Review Date: 03/02/2019 Generated: 03/02/19 11:54 am Comments DCP- Discharge Planning Updated by [email or web address]: Tika Bustillos on 03/02/19 9:[address] Patient Name: BLAKE TURNER Admission Status: ER Accout number: [id number] Admission Date: 02-28-2019 : 1940 Admission Diagnosis: Attending: AGATA ANDERSON Current LOS: 2 Anticipated DC Date: Planned Disposition: Home Primary Insurance: MEDICARE A & B Discharge Planning Comments: CM met with patient about discharge planning. CM explained CM role and verbal consent was given to do dc assessment. CM educated on Home Health, DME and rehab services that are available. Patient states his discharge plan is to return to home with . States home environment is safe dc. Denies any discharge planning needs at this time. States will drive him home upon discharge. CM will continue to follow and assist as needed with discharge planning needs. Indoor Landscaper/Gardener: Tika Bustillos DCPIA - Discharge Planning Initial Assessment Updated by [email or web address]: Tika Bustillos on 03/02/19 10:46 am * Is the patient Alert and Oriented? Yes * How many steps to enter\exit or inside your home? na * PCP Dr. Giuliano Acuna PA * [facility] [phone] * Preadmission Environment Home with Family * ADLs Independent * Equipment None * Verbal permission to speak to the caregivers and representatives has been obtained from the patient. N/A * Community resources currently utilized None * Additional services required to return to the preadmission environment? No * Can the patient safely return to the preadmission environment? Yes * Has this patient been hospitalized within the prior 30 days at any hospital? No Patient Name: BLAKE TURNER Page [id number] at 1055 All edits/amendments must be made on the electronic document DICTATION DATE: 03/02/19 1054 GALLEY COOK: THEA 03/02/19 1054 RPT#: [id number] DC DATE: STATUS: ADM IN [facility] [address] [place] [address] END OF REPORT
--- NOTE | 2019-03-02 11:30 | NUR ---
DR FERGUSON HERE AND SPOKE WITH PATIENT AND HIS AT BEDSIDE CONCERNING SCAN RESULTS AND DOPPLER RESULTS AND INFORMING THEM OF COURSE OF TREATMENT. THEY VERBALIZED UNDERSTANDING WITH PATIENT AGREEING TO TAKE HIS HOME MEDICATIONS AND BE COMPLIANT
--- NOTE | 2019-03-02 13:30 | NUR ---
ALERT LYING IN BED RESP EVEN WITHOUT LABOR NO C/O AT THIS TIME O2 ON CL IN REACH. CONTINUE WITH CURRENT PLAN OF CARE
--- NOTE | 2019-03-02 15:45 | NUR ---
UP IN W/C WENT AROUND THE NURSES STATION WITH HIS . ALERT WITH NO C/O VOICED AT THIS TIME. TAKING PO FLUIDS WELL
--- NOTE | 2019-03-02 19:00 | NUR ---
PATIENT LAYING IN BED. EYES CLOSED, CHEST RISING AND FALLING. NO DISTRESS NOTED. FAMILY AT BEDSIDE.
--- NOTE | 2019-03-03 02:25 | NUR ---
PATIENT LAYING IN BED. EYES CLOSED, CHEST RISING AND FALLING. NO DISTRESS NOTED.
--- NOTE | 2019-03-03 04:41 | NUR ---
I have reviewed this patient and I concur with the Shift Assessment completed by the Licensed Practical Nurse today this shift.
[2019-03-03 04:54] VITALS: BP 166/71
[2019-03-03 04:56] LABS: BASOPHILS 0.3 % (0-2); EOSINOPHILS 1.7 % (0-7); HEMATOCRIT 36.5 % (42.0-54.0); HEMOGLOBIN 12.3 g/dL (13.5-17.5); IMMATURE GRANULOCYTES 0.2 % (0-5); MCH 30.7 pg (26.0-34.0); MCHC 33.7 g/dL (31.0-37.0); MEAN PLATELET VOLUME 10.7 fL (7.4-10.4); MONOCYTES 8.4 % (2-11); NEUTROPHILS 62.4 % (40-80); PLATELET COUNT 138 10x3/uL (130-400); RBC 4.01 10x6/uL (4.20-6.10); RDW 15.2 % (11.5-14.5); WBC 5.9 10x3/uL (4.8-10.8)
[2019-03-03 05:08] VITALS: BP 152/68
[2019-03-03 05:30] LABS: CALC OSMOLALITY 278 mosm/kg (275-300); CALCIUM 8.4 mg/dL (8.5-10.1); CARBON DIOXIDE 26.6 mmol/L (21.0-32.0); CHLORIDE - SERUM 105 mmol/L (98-107); CREATININE - SERUM 0.9 mg/dL (0.6-1.3); GLUCOSE 84 mg/dL (74-106); POTASSIUM - SERUM 3.5 mmol/L (3.5-5.1); SODIUM 139 mmol/L (136-145); UREA NITROGEN 17 mg/dL (7-18); eGFR NON AFRICAN AMERICAN 86 mL/min (90-120)
--- NOTE | 2019-03-03 07:10 | NUR ---
RECEIVED LYING IN BED WITH CL IN REACH ALERT AND ORIENT DENIES ANY PAIN OR SHORTNESS OF BREATH. HL INTACT SITE CLEAR. O2 ON PER N/C SKIN W/D. HEART RATE 70 IN SINUS RHYTHM. AT BEDSIDE
[2019-03-03 07:37] VITALS: BP 136/70
--- NOTE | 2019-03-03 09:30 | NUR ---
IN BED RESTING WITH EASE AROUSES TO VERBAL STIMULI. DENIES ANY CHEST PAIN OR SHORTNESS OF BREATH. TAKING PO FLUIDS WELL. AT BEDSIDE
--- NOTE | 2019-03-03 11:30 | NUR ---
IN ROOM WITH CL IN REACH. RESP EVEN WITHOUT LABOR DENIES ANY CURRENT NEEDS.
[2019-03-03 11:31] VITALS: BP 131/74
[2019-03-03] MEDS ORDERED: ELIQUIS5 MG PO ×2 (11:38→11:39)
--- NOTE | 2019-03-03 12:57 | MORECARE ---
CASE MANAGEMENT DISCHARGE SUMMARY PATIENT: BLAKE TURNER UNIT: [id number] ADM DATE: 02/28/19 AGE: 78 : 38 SEX: M ROOM/BED: D.2130 AUTHOR: VAISHALIDOC PHYSICIAN: REFERRING PHYSICIAN: AGATA ANDERSON MD DATE OF SERVICE: 03/03/19 Discharge Plan Patient Name: BLAKE TURNER Facility: [facility]:[place] : 1940 Planned Disposition: Home Anticipated Discharge Date: 03/03/19 Discharge Date: Expected LOS: 3 Initial Reviewer: [id number] Initial Review Date: 03/02/2019 Generated: 03/03/19 1:57 pm Comments DCP- Discharge Planning Updated by [id number]: Tika Bustillos on 03/02/19 9:[address] Patient Name: BLAKE TURNER Admission Status: ER Accout number: [id number] Admission Date: 02-28-2019 : 1940 Admission Diagnosis: Attending: AGATA ANDERSON Current LOS: 2 Anticipated DC Date: Planned Disposition: Home Primary Insurance: MEDICARE A & B Discharge Planning Comments: CM met with patient about discharge planning. CM explained CM role and verbal consent was given to do dc assessment. CM educated on Home Health, DME and rehab services that are available. Patient states his discharge plan is to return to home with . States home environment is safe dc. Denies any discharge planning needs at this time. States will drive him home upon discharge. CM will continue to follow and assist as needed with discharge planning needs. Boot Liner Maker: Tika Bustillos DCPIA - Discharge Planning Initial Assessment Updated by [email or web address]: Tika Bustillos on 03/02/19 10:46 am * Is the patient Alert and Oriented? Yes * How many steps to enter\exit or inside your home? na * PCP Dr. Giuliano Acuna PA * Pharmacy [facility] [phone] * Preadmission Environment Home with Family * ADLs Independent * Equipment None * Verbal permission to speak to the caregivers and representatives has been obtained from the patient. N/A * Community resources currently utilized None * Additional services required to return to the preadmission environment? No * Can the patient safely return to the preadmission environment? Yes * Has this patient been hospitalized within the prior 30 days at any hospital? No Coverage Notice Reviewer: [email or web address] Brush Notice Issued Date-Time: 03/03/2019 12:30 Notice Type: IM Discharge Notice Notice Delivered To: Patient Relationship to Patient: Turbine Operator Name: Delivery Method: HAND - Hand Delivered Mia Days: Prior Verbal Notification: Recipient Understood Notice: Yes Recipient Signature: Yes Med Rec Note Co-signed by Attending: Coverage Notice Comment: Reviewer: AIMEE Brush Notice Issued Date-Time: 03/03/2019 12:30 Notice Type: Patient Choice Letter Notice Delivered To: Patient Relationship to Patient: Turbine Operator Name: Delivery Method: HAND - Hand Delivered Mia Days: Prior Verbal Notification: Recipient Understood Notice: Yes Recipient Signature: Yes Med Rec Note Co-signed by Attending: Coverage Notice Comment: [facility] [employer] IN [place], [place]. Last DP export: 03/02/19 9:55 am Patient Name: BLAKE TURNER Page [phone] at 1257 All edits/amendments must be made on the electronic document DICTATION DATE: 03/03/19 1257 FIREWORKS ASSEMBLER: DM 03/03/19 1257 RPT#: [id number] DC DATE: STATUS: ADM IN [facility] [address] [place] [address] END OF REPORT
--- NOTE | 2019-03-03 13:06 | MORECARE ---
CASE MANAGEMENT DISCHARGE SUMMARY PATIENT: BLAKE TURNER UNIT: [id number] ADM DATE: 02/28/19 AGE: 78 : 38 SEX: M ROOM/BED: D.2130 AUTHOR: VAISHALIDOC PHYSICIAN: REFERRING PHYSICIAN: AGATA ANDERSON MD DATE OF SERVICE: 03/03/19 Discharge Plan Patient Name: BLAKE TURNER Facility: [facility]:[place] : 1940 Planned Disposition: Home Anticipated Discharge Date: 03/03/19 Discharge Date: Expected LOS: 3 Initial Reviewer: [id number] Initial Review Date: 03/02/2019 Generated: 03/03/19 2:06 pm Comments DCP- Discharge Planning Updated by [id number]: Tika Bustillos on 03/02/19 9:[address] Patient Name: BLAKE TURNER Admission Status: ER Accout number: [id number] Admission Date: 02-28-2019 : 1940 Admission Diagnosis: Attending: AGATA ANDERSON Current LOS: 2 Anticipated DC Date: Planned Disposition: Home Primary Insurance: MEDICARE A & B Discharge Planning Comments: CM met with patient about discharge planning. CM explained CM role and verbal consent was given to do dc assessment. CM educated on Home Health, DME and rehab services that are available. Patient states his discharge plan is to return to home with . States home environment is safe dc. Denies any discharge planning needs at this time. States will drive him home upon discharge. CM will continue to follow and assist as needed with discharge planning needs. Education Program Specialist: Tika Bustillos DCPIA - Discharge Planning Initial Assessment Updated by [email or web address]: Tika Bustillos on 03/02/19 10:46 am * Is the patient Alert and Oriented? Yes * How many steps to enter\exit or inside your home? na * PCP Dr. Giuliano Acuna PA * Pharmacy [facility] [phone] * Preadmission Environment Home with Family * ADLs Independent * Equipment None * Verbal permission to speak to the caregivers and representatives has been obtained from the patient. N/A * Community resources currently utilized None * Additional services required to return to the preadmission environment? No * Can the patient safely return to the preadmission environment? Yes * Has this patient been hospitalized within the prior 30 days at any hospital? No Coverage Notice Reviewer: [id number] Brush Notice Issued Date-Time: 03/03/2019 12:30 Notice Type: IM Discharge Notice Notice Delivered To: Patient Relationship to Patient: Warehouse Traffic Supervisor Name: Delivery Method: HAND - Hand Delivered Mia Days: Prior Verbal Notification: Recipient Understood Notice: Yes Recipient Signature: Yes Med Rec Note Co-signed by Attending: Coverage Notice Comment: Reviewer: AIMEE rBush Notice Issued Date-Time: 03/03/2019 12:30 Notice Type: Patient Choice Letter Notice Delivered To: Patient Relationship to Patient: Warehouse Traffic Supervisor Name: Delivery Method: HAND - Hand Delivered Mia Days: Prior Verbal Notification: Recipient Understood Notice: Yes Recipient Signature: Yes Med Rec Note Co-signed by Attending: Coverage Notice Comment: [facility] IN [place], [place]. Last DP export: 03/03/19 11:57 am Patient Name: BLAKE TURNER Page [phone] at 1306 All edits/amendments must be made on the electronic document DICTATION DATE: 03/03/19 1305 FOREST PATHOLOGIST: THEA 03/03/19 1305 RPT#: [id number] DC DATE: STATUS: ADM IN [facility] [address] [place] [address] END OF REPORT
--- NOTE | 2019-03-03 13:14 | MORECARE ---
CASE MANAGEMENT DISCHARGE SUMMARY PATIENT: BLAKE TURNER UNIT: [id number] ADM DATE: 02/28/19 AGE: 78 : 38 SEX: M ROOM/BED: D.2130 AUTHOR: VAISHALIDOC PHYSICIAN: REFERRING PHYSICIAN: AGATA ANDERSON MD DATE OF SERVICE: 03/03/19 Discharge Plan Patient Name: BLAKE TURNER Facility: [facility]:[place] : 1940 Planned Disposition: Home Anticipated Discharge Date: 03/03/19 Discharge Date: Expected LOS: 3 Initial Reviewer: [id number] Initial Review Date: 03/02/2019 Generated: 03/03/19 2:14 pm Comments DCP- Discharge Planning Updated by [email or web address]: Ric Muniz on 03/03/19 12:[address] Patient Name: BLAKE TURNER Encounter No: [id number] : 1940 Primary Insurance: MEDICARE A & B Anticipated DC Date: 03-03-2019 Planned Disposition: Home DCP follow-up note: CM RECEIVED ORDER TO CHECK WITH PT'S INSURANCE TO ENSURE ELIQUIS IS COVERED BY PT'S PRESCRIPTION COVERAGE AND TO ARRANGE HOME OXYGEN IF NEEDED. CM MET WITH PT AND SPOUSE, DISCUSSED DISCHARGE NEEDS AND PLANNING. CM DISCUSSED AVAILABILITY OF REHAB SERVICES, HOME HEALTH AND MEDICAL EQUIPMENT. PT DENIES NEEDS EXCEPT FOR POSSIBLY OXYGEN. THEY HAVE NO PROVIDER PREFERENCE IN [place]. CHOICE SIGNED FOR ANY PROVIDER IN [place] FOR OXYGEN IF NEEDED. IMPORTANT MESSAGE FROM MEDICARE PROVIDED AND DISCUSSED. PT HAS [employer], [employer] AND LOST HIS CARD. CM CALLED [employer], , SPOKE TO ROMA WHO VERIFIED ELIQUIS IS COVERED, FIRST 14 DAYS IS $8.16 AND THE REMAINING 5MG MONTHLY IS $35. CM NOTIFIED PT AND SPOUSE WHO REPORT THIS TO BE AFFORDABLE. FLOW CORDINATOR NURSE NOTIFIED. CM WAITING OXYGEN TESTING AND WILL ARRANGE HOME OXYGEN IF QUALIFIES. RIC MUNIZ, CASE GUILLAUME DCP- Discharge Planning Updated by [id number]: Tika Bustillos on 03/02/19 9:[address] Patient Name: BLAKE TURNER Admission Status: ER Accout number: [id number] Admission Date: 02-28-2019 : 1940 Admission Diagnosis: Attending: AGATA ANDERSON Current LOS: 2 Anticipated DC Date: Planned Disposition: Home Primary Insurance: MEDICARE A & B Discharge Planning Comments: CM met with patient about discharge planning. CM explained CM role and verbal consent was given to do dc assessment. CM educated on Home Health, DME and rehab services that are available. Patient states his discharge plan is to return to home with . States home environment is safe dc. Denies any discharge planning needs at this time. States will drive him home upon discharge. CM will continue to follow and assist as needed with discharge planning needs. Lumber Cutter: Tika Bustillos DCPIA - Discharge Planning Initial Assessment Updated by [email or web address]: Tika Bustillos on 03/02/19 10:46 am * Is the patient Alert and Oriented? Yes * How many steps to enter\exit or inside your home? na * PCP Dr. Giuliano Acuna PA * Pharmacy [facility] [phone] * Preadmission Environment Home with Family * ADLs Independent * Equipment None * Verbal permission to speak to the caregivers and representatives has been obtained from the patient. N/A * Community resources currently utilized None * Additional services required to return to the preadmission environment? No * Can the patient safely return to the preadmission environment? Yes * Has this patient been hospitalized within the prior 30 days at any hospital? No Coverage Notice Reviewer: [id number] Muniz Notice Issued Date-Time: 03/03/2019 12:30 Notice Type: IM Discharge Notice Notice Delivered To: Patient Relationship to Patient: Utilities Service Investigator Name: Delivery Method: HAND - Hand Delivered Mia Days: Prior Verbal Notification: Recipient Understood Notice: Yes Recipient Signature: Yes Med Rec Note Co-signed by Attending: Coverage Notice Comment: Reviewer: [id number] Robson Muniz Notice Issued Date-Time: 03/03/2019 12:30 Notice Type: Patient Choice Letter Notice Delivered To: Patient Relationship to Patient: Utilities Service Investigator Name: Delivery Method: HAND - Hand Delivered Mia Days: Prior Verbal Notification: Recipient Understood Notice: Yes Recipient Signature: Yes Med Rec Note Co-signed by Attending: Coverage Notice Comment: ANY MEDICAL EQUIPMENT COMPANY IN [place], [place]. Last DP export: 03/03/19 12:06 pm Patient Name: BLAKE TURNER Page [phone] at 1314 All edits/amendments must be made on the electronic document DICTATION DATE: 03/03/191312 SIGNAL INSPECTOR: THEA 03/03/191312 RPT#: [id number] DC DATE: STATUS: ADM IN [facility] [address] [place] [address] END OF REPORT
--- NOTE | 2019-03-03 13:30 | NUR ---
ATE GOOD FOR LUNCH. HE IS TAKING MEDS GOOD. DENIES ANY SHORTNESS OF BREATH OR CHEST PAIN. O2 ON.
--- NOTE | 2019-03-03 14:21 | MORECARE ---
CASE MANAGEMENT DISCHARGE SUMMARY PATIENT: BLAKE TURNER UNIT: [id number] ADM DATE: 02/28/19 AGE: 78 : 38 SEX: M ROOM/BED: D.2130 AUTHOR: VAISHALI,DOC PHYSICIAN: REFERRING PHYSICIAN: AGATA ANDERSON MD DATE OF SERVICE: 03/03/19 Discharge Plan Patient Name: BLAKE TURNER Facility: [facility]:[place] : 1940 Planned Disposition: Home Anticipated Discharge Date: 03/03/19 Discharge Date: Expected LOS: 3 Initial Reviewer: [email or web address] Initial Review Date: 03/02/2019 Generated: 03/03/19 3:21 pm Comments DCP- Discharge Planning Updated by [id number]: Ric Muniz on 03/03/19 1:[address] Patient Name: BLAKE TURNER Encounter No: [id number] : 1940 Primary Insurance: MEDICARE A & B Anticipated DC Date: 03-03-2019 Planned Disposition: Home DCP follow-up note: CM RECEIVED ORDER TO CHECK WITH PT'S INSURANCE TO ENSURE ELIQUIS IS COVERED BY PT'S PRESCRIPTION COVERAGE AND TO ARRANGE HOME OXYGEN IF NEEDED. CM MET WITH PT AND SPOUSE, DISCUSSED DISCHARGE NEEDS AND PLANNING. CM DISCUSSED AVAILABILITY OF REHAB SERVICES, HOME HEALTH AND MEDICAL EQUIPMENT. PT DENIES NEEDS EXCEPT FOR POSSIBLY OXYGEN. THEY HAVE NO PROVIDER PREFERENCE IN [place]. CHOICE SIGNED FOR ANY PROVIDER IN [place] FOR OXYGEN IF NEEDED. IMPORTANT MESSAGE FROM MEDICARE PROVIDED AND DISCUSSED. PT HAS [employer], [employer] AND LOST HIS CARD. CM CALLED [employer], , SPOKE TO ROMA WHO VERIFIED ELIQUIS IS COVERED, FIRST 14 DAYS IS $8.16 AND THE REMAINING 5MG MONTHLY IS $35. CM NOTIFIED PT AND SPOUSE WHO REPORT THIS TO BE AFFORDABLE. FLOW CORDINATOR NURSE NOTIFIED. CM WAITING OXYGEN TESTING AND WILL ARRANGE HOME OXYGEN IF QUALIFIES. RIC MUNIZ, CASE MANAGEMENT Appended by Ric Muniz on 03/03/2019 14:18 CDT: CM RECEIVED OXYGEN TESTING, PT DID NOT QUALIFY FOR OXYGE WITH LOWEST OXYGEN SATURATION ON ROOM AIR ON EXERTION 93%. COLD MOLDING PRESS OPERATOR NURSE NOTIFIED. RIC CRISTY, CASE MANAGEMENT DCP- Discharge Planning Updated by [id number]: Tika Bustillos on 03/02/19 9:[address] Patient Name: BLAKE TURNER Admission Status: ER Accout number: [id number] Admission Date: 02-28-2019 : 1940 Admission Diagnosis: Attending: AGATA ANDERSON Current LOS: 2 Anticipated DC Date: Planned Disposition: Home Primary Insurance: MEDICARE A & B Discharge Planning Comments: CM met with patient about discharge planning. CM explained CM role and verbal consent was given to do dc assessment. CM educated on Home Health, DME and rehab services that are available. Patient states his discharge plan is to return to home with . States home environment is safe dc. Denies any discharge planning needs at this time. States will drive him home upon discharge. CM will continue to follow and assist as needed with discharge planning needs. Mechanical Specialist: Tika Bustillos DCPIA - Discharge Planning Initial Assessment Updated by [id number]: Tika Bustillos on 03/02/19 10:46 am * Is the patient Alert and Oriented? Yes * How many steps to enter\exit or inside your home? na * PCP Dr. Giuliano Acuna PA * Pharmacy [facility] [phone] * Preadmission Environment Home with Family * ADLs Independent * Equipment None * Verbal permission to speak to the caregivers and representatives has been obtained from the patient. N/A * Community resources currently utilized None * Additional services required to return to the preadmission environment? No * Can the patient safely return to the preadmission environment? Yes * Has this patient been hospitalized within the prior 30 days at any hospital? No Coverage Notice Reviewer: [id number] Muniz Notice Issued Date-Time: 03/03/2019 12:30 Notice Type: IM Discharge Notice Notice Delivered To: Patient Relationship to Patient: Hoof Trimmer Name: Delivery Method: HAND - Hand Delivered Mia Days: Prior Verbal Notification: Recipient Understood Notice: Yes Recipient Signature: Yes Med Rec Note Co-signed by Attending: Coverage Notice Comment: Reviewer: [id number] Muniz Notice Issued Date-Time: 03/03/2019 12:30 Notice Type: Patient Choice Letter Notice Delivered To: Patient Relationship to Patient: Hoof Trimmer Name: Delivery Method: HAND - Hand Delivered Mia Days: Prior Verbal Notification: Recipient Understood Notice: Yes Recipient Signature: Yes Med Rec Note Co-signed by Attending: Coverage Notice Comment: ANY MEDICAL EQUIPMENT COMPANY IN [place], [place]. Last DP export: 03/03/19 12:14 pm Patient Name: BLAKE TURNER Page [phone] at 1421 All edits/amendments must be made on the electronic document DICTATION DATE: 03/03/191419 LATEX CASTER: THEA 03/03/191419 RPT#: [id number] DC DATE: STATUS: ADM IN [facility] [address] [place] [address] END OF REPORT
--- NOTE | 2019-03-03 16:00 | NUR ---
ORDERS RECIEVED FOR DC. PATIENT IS STABLE AND VSS. VERBAL AND WRITTEN ORDERS GIVEN TO PATIENT AND SPOUSE. BOTH VERBALIZED UNDERSTANDING AND WRITTEN ORDERS SIGNED. PATIENT TRANSPORTED TO FRONT DOOR AND PRIVATE VEHICLE DRIVEN BY .
--- NOTE | 2019-03-05 16:41 | EC ---
PATIENT:BLAKE TURNER DATE OF SERVICE: 02/28/19 SEX: M MEDICAL RECORD: [id number] DATE OF : [birth year] LOCATION:D.M2 D.213 AGE OF PATIENT: 78 ADMISSION DATE: 02/28/19 REFERRING PHYSICIAN: INTERPRETING PHYSICIAN: KIAN MAGDALENO MD ECHOCARDIOGRAM REPORT ECHO CHARGES 4 ECHO COMPLETE Date: 03/01/19 CLINICAL DIAGNOSIS: SOB/CRISTINA ECHOCARDIOGRAPHIC MEASUREMENTS (adult normal given) AC root (d.<3.7cm) 3.7 cm LV Septum d (<1.2 cm> 1.4 cm Valve Excursion 2.2 cm LV Septum (systole) 2.0 cm Left Atria (s.<4.0cm> 4.1 cm LVPW d(<1.2cm) 1.4 cm RV (d.<2.3cm) 2.5 cm LVPW (sytole) 2.0 cm LV diastole(<5.6CM) 4.8 cm MV E-F(>70mm/sec) cm LV systole 2.5 cm LVOT Diameter 1.9 cm MV exc.(>10mm) cm Est.ejection fraction (50-75%) % DOPPLER: LVIT cm/sec A 93.0 cm/sec E 81.0 cm/sec LA cm/sec RVSP 56.0 mmHg LVOT 92.0 cm/sec AOP1/2T m/s Asc. Ao 111 cm/sec RVOT 37.0 cm/sec RA cm/sec PA 64.0 cm/sec AV Gradient Peak 4.9 mmHg AV Mean 2.3 mmHg AV Area 2.7 cm MV Gradient Peak 4.3 mmHg MV Mean 1.8 mmHg MV Area cm COMMENTS: Competitive Intelligence Analyst: Alyssa HDZOE Injection Molding Machine Tender: Aldo Medeiros TAPE# PACS Pericardial Effusion N DATE OF SERVICE: 03/01/2019 PROCEDURE: Echocardiogram. FINDINGS: 1. Left ventricular chamber size is within normal limits. Left ventricular systolic function is normal. Overall ejection fraction estimated at 60%. 2. Left atrium is enlarged at 4.1 cm. Right atrium and right ventricular chamber sizes are within normal limits. 3. Valvular structures have normal structure and motion. ECHOCARDIOGRAM REPORT [id number] BLAKE TURNER N 4. Doppler interrogation reveals [id number] mitral regurgitation, moderate tricuspid regurgitation, no other valvular insufficiency or stenosis. Pulmonary systolic pressure is estimated 56 mmHg. 5. No evidence of pericardial effusion or left ventricular thrombus. TRANSINT:[id number] Voice Confirmation ID: [id number] DOCUMENT ID: [id number] KIAN AMGDALENO MD at 1641 CC: [id number] DICTATION DATE: 03/01/19 1211 RUBBER FACTORY WORKER: 03/01/19 1308 DIS IN 03/03/19 [facility] [address] [place] [id number]
== END 2019-03-03 17:24 | disposition home or self-care (01) | DRG 176 ==
LOC: D.ER 14:49 → D.M2 16:23 → D.EDHOLD 16:23 → D.M2 16:38
PROVIDERS: Emergency Medicine; Internal Medicine Cardiovascular Disease; Internal Medicine Nephrology; ADMIT Family Medicine; ATTEND Family Medicine
PROC: B2151ZZ Fluoroscopy of Left Heart using Low Osmolar Contrast (ICD-10-PCS; 2019-03-01)
PROC: B2181ZZ Fluoroscopy of Left Internal Mammary Bypass Graft using Low Osmolar Contrast (ICD-10-PCS; 2019-03-01)
PROC: B3101ZZ Fluoroscopy of Thoracic Aorta using Low Osmolar Contrast (ICD-10-PCS; 2019-03-01)
PROC: 4A023N7 Measurement of Cardiac Sampling and Pressure, Left Heart, Percutaneous Approach (ICD-10-PCS; 2019-03-01)
PROC: B2111ZZ Fluoroscopy of Multiple Coronary Arteries using Low Osmolar Contrast (ICD-10-PCS; principal; 2019-03-01 15:06)
DX: I26.99 Other pulmonary embolism without acute cor pulmonale (principal); I82.412 Acute embolism and thrombosis of left femoral vein; N17.9 Acute kidney failure, unspecified; I25.119 Atherosclerotic heart disease of native coronary artery with unspecified angina pectoris; I10 Essential (primary) hypertension; K21.9 Gastro-esophageal reflux disease without esophagitis; I34.0 Nonrheumatic mitral (valve) insufficiency; D64.9 Anemia, unspecified; H40.9 Unspecified glaucoma; Z86.73 Personal history of transient ischemic attack (TIA), and cerebral infarction without residual deficits